=== PATIENT | female | born 1990 | race Caucasian/White ===

== ENCOUNTER 2025-01-31 07:11 | Outpatient (CLI) | payer BC, SELFPAY ==
--- NOTE | 2025-01-31 07:15 | CRLHL7_ITS ---
For Patients: As a result of the Cures Act, medical imaging exams and procedure reports are released immediately into your electronic medical record. You may view this report before your referring provider. If you have questions, please contact your health care provider. OB ULTRASOUND FIRST TRIMESTER INDICATION: Dating and viability. TECHNIQUE: Real time harrison scale imaging of the fetus was performed. Transabdominal. LMP: 11/14/2024. TREVOR by LMP: 08/21/2025. GA: 11 w, 1 d. Previous US: No. CRL: 4.8 cm. 11 w 4 d. TREVOR: 08/18/2025. FHR: 176BPM. Gestational sac: 4.8 cm. Appears within normal limits. Yolk sac: N/V. Placenta formed. Right ovary: Within normal limits. 4.6 x 2.0 x 3.1 cm Left ovary: Within normal limits. 3.1 x 2.2 x 2.2 cm. IMPRESSION: 1. Single living intrauterine measures 11 weeks 4 days with a sonographic due date of 08/18/2025. 2. Subchorionic hemorrhage measures 4.6 x 1.1 x 1.1 cm. 3. Simple right ovarian cyst measures 3.0 x 2.3 x 2.1 cm. Sameer Nash M.D. Diagnostic Radiologist [email or web address] NAE/ramses JR/Dictated by: Sameer Nash MD @ 01/31/2025 8:32:00 AM (Electronically Signed)
== END 2025-01-31 07:12 | disposition home or self-care (01) ==
LOC: US 07:13
PROVIDERS: Visit Provider Registered Nurse
DX: Z34.91 Encounter for supervision of normal pregnancy, unspecified, first trimester (principal); Z3A.11 11 weeks gestation of pregnancy
CPT/HCPCS: 76801